=== PATIENT | male | born 1975 | race Caucasian/White ===

== ENCOUNTER 2016-04-29 17:57 | Emergency (ER) ==
[2016-04-29 18:37] LABS: MANUAL DIFF NEEDED? NO
[2016-04-29 18:56] LABS: BASO% 0.2 % (0.0-0.8); EOS# 0.52 X1000 (0.0-0.7); EOS% 3.8 % (0.0-10.0); HEMATOCRIT 42.6 % (42.0-52.0); HEMOGLOBIN 14.7 g/dL (14.0-18.0); IMM GRAN# 0.03 X1000 (0.0-0.04); IMM GRAN% 0.2 % (0.0-0.5); LYMPH# 1.95 X1000 (1.2-3.4); LYMPH% 14.2 % (20.5-51.1); MCH 29.6 PG (27-31); MCHC 34.5 g/dL (33-37); MCV 85.9 FL (81-99); MONO# 1.26 X1000 (0.11-0.59); MONO% 9.2 % (1.7-9.3); MPV 10.6 FL (7.4-10.4); NEUT% 72.4 % (42.2-75.2); PLT 286 X1000 (130-400); RBC 4.96 XMIL (4.7-6.1)
[2016-04-29 19:14] LABS: UR AMPHETAMINES QUAL NONE DETECTED (NONE DETECT); UR BARBITUATES QUAL NONE DETECTED (NONE DETECT); UR BENZODIAZEPIN QUAL PRESUMPTIVE POSITIVE (NONE DETECT); UR CANNABINOIDS QUAL NONE DETECTED (NONE DETECT); UR COCAINE QUAL NONE DETECTED (NONE DETECT); UR METHADONE QUAL NONE DETECTED (NONE DETECT); UR OPIATES QUAL NONE DETECTED (NONE DETECT); UR OXYCODONE QUAL PRESUMPTIVE POSITIVE (NONE DETECT); UR PCP QUAL NONE DETECTED (NONE DETECT)
[2016-04-29 19:24] LABS: AGAP 12; ALBUMIN 4.5 g/dL (3.5-5.0); ALKALINE PHOSPHATASE 87 U/L (32-122); BUN 9 mg/dL (8-22); CALCIUM 9.8 mg/dL (8.8-10.2); CHLORIDE 98 mmol/L (98-107); COSMO 280; GOT 26 U/L (10-34); GPT 24 U/L (10-44); SODIUM 141 mmol/L (136-145); TCO2 31 mmol/L (25-35); TOTAL BILIRUBIN 0.23 mg/dL (0.20-1.00); TOTAL PROTEIN 7.1 g/dL (6.3-8.3)
[2016-04-29] MEDS ORDERED: KEFLEX PO ONE (19:36)
--- NOTE | 2016-04-29 19:37 | PROVIDER DOCUMENTATION ---
HPI-General Adult - General Chief Complaint: General Adult Stated Complaint: FORREST,COUGHING,FALL,BACK PAIN Time Seen by Provider: 04/29/16 19:12 Source: patient Allergies/Adverse Reactions: Patient Allergies Allergy/AdvReac Type Severity Reaction Status Date / Time codeine [Codeine] Allergy Severe ANAPHYLAXIS Verified 04/29/16 19:31 Home Medications: Alprazolam [Xanax] 0.5 mg PO BID 10/10/15 Buprenorphine/Naloxone S.l. [Suboxone 8 mg/2 mg] 2.5 each SL QAM 10/10/15 Paroxetine [Paxil] 20 mg PO QPM 10/10/15 Dextroamphetamine/Amphetamine [Adderall 30 mg Tablet] 30 mg PO BID 04/29/16 - History of Present Illness -Gen Adult Nature of Presenting Problems: Pt is a 41 yom who presents to ER with CC of "feeling sick," "feels like I have a fever," sore throat, back pain. Pt reports that he ran out of his pain medicine and was given a percocet by a friend at home. Pt reports he lost his prescription for more pain medicine. Pt reports that he suffered a 13 foot fall x2 months ago and has since had short term memory loss. When asked if he smoked , due to wheezing, pt reported "I smoked a half cigarette 30 minutes before coming here." Location of Pain/Injury: reports: back Onset/Duration: reports: unsure Associated Symptoms: reports: back/neck pain, fever/chills, muscle aches Review of Systems - Adult - REVIEW OF SYSTEMS - ADULT Constitutional: reports: fever. denies: chills, fatique Eyes: reports: no symptoms reported Ears, Nose, Mouth & Throat: reports: no symptoms reported Cardiovascular: reports: no symptoms reported Respiratory: reports: no symptoms reported Gastrointestinal: reports: no symptoms reported Genitourinary: reports: no symptoms reported Musculoskeletal: reports: back pain. denies: bone pain, joint swelling, muscle aches Integumentary: reports: no symptoms reported Neurological: reports: no symptoms reported Psychiatric: reports: no symptoms reported Endocrine: reports: no symptoms reported Hematologic/Lymphatic: reports: no symptoms reported Allergic/Immunologic: reports: no symptoms reported All Other Systems: Reviewed and Negative Past History - Adult - PAST MEDICAL HISTORY-ADULT Review of Records: reports: Nursing Assessment Review, Medications Reviewed Respiratory: reports: bronchitis Gastrointestinal: reports: GERD Musculoskeletal: reports: arthritis, chronic pain Psychiatric: reports: anxiety - PRIOR SURGERIES/PROCEDURES Surgical/Procedure History: reports: orthopedic (extremity) - IMMUNIZATION STATUS Childhood Immunizations: See Nurse Assessment Flu Vaccine: See Nurse Assessment - SOCIAL HISTORY Smoking: cigarettes, less than 1 pack/day Provider spent 3-5 mins advising pt. on dangers of tobacco.: Discussed manners to quit use, and f/u contacts for add'l counseling. Substance Use: opiates Physical Exam-General - PHYSICAL EXAM-ADULT Initial Vital Signs Reviewed: Yes - CONSTITUTIONAL General Appearance: appears well, alert, no apparent distress - EYES Eyes: other (R pupil: 3mm; L pupil: 2mm) - NECK Neck: non-tender, full range of motion, supple - RESPIRATORY Respiratory: chest non-tender, lungs clear, wheezing (bilateral) - CARDIOVASCULAR Cardiovascular: normal peripheral pulses, regular rate, rhythm - LYMPHATIC Lymphatic: no adenopathy - MUSCULOSKELETAL Back Exam: no CVA tenderness, no vertebral tenderness Extremity: normal range of motion, non-tender, normal gait - SKIN Integumentary: normal color, normal turgor, warm/dry - NEUROLOGIC Neurologic: grossly normal, no motor/sensory deficits - PSYCHIATRIC Psych/Mental Status: normal mood/affect, normal thought content, normal thought process, oriented x 3 Progress - PLAN OF CARE/RESULTS Progress/Plan/Lab Results: Vital Signs - 24 hr 04/29/16 18:11 Temperature 98.3 F Pulse Rate 91 H Respiratory 18 Rate Blood Pressure 147/82 O2 Sat by Pulse 99 Oximetry Orders Category Date Time Status CHEST-2 VIEWS [RAD] Stat Exams 04/29/16 18:18 Taken LUMBAR SPINE [RAD] Stat Exams 04/29/16 18:32 Taken CBC WITH DIFF [HEME] Stat Lab 04/29/16 18:19 Completed COMPREHENSIVE METABOLIC PANEL [CHEM] Stat Lab 04/29/16 18:19 Completed URINE DRUG SCREEN Stat Lab 04/29/16 18:19 Completed CephALEXIN [Keflex] Med 04/29/16 19:36 Discontinued 500 mg PO NOW ONE Laboratory Tests 04/29/16 04/29/16 04/29/16 18:19 18:19 18:19 WBC 13.74 H RBC 4.96 Hgb 14.7 Hct 42.6 MCV 85.9 MCH 29.6 MCHC 34.5 RDW Std Deviation 13.2 Plt Count 286 MPV 10.6 H Immature Gran % (Auto) 0.2 Neut % (Auto) 72.4 Lymph % (Auto) 14.2 L Mcminn % (Auto) 9.2 Eos % (Auto) 3.8 Baso % (Auto) 0.2 Immature Gran # (Auto) 0.03 Neut # (Auto) 9.95 H Lymph # (Auto) 1.95 Mcminn # (Auto) 1.26 H Eos # (Auto) 0.52 Baso # (Auto) 0.03 Sodium 141 Potassium 4.0 Chloride 98 Carbon Dioxide 31 Anion Gap 12 BUN 9 Creatinine 0.8 Estimated GFR/1.73 m2 > 60 BUN/Creatinine Ratio 11 Glucose 93 Calculated Osmolality 280 Calcium 9.8 Total Bilirubin 0.23 AST 26 ALT 24 Alkaline Phosphatase 87 Total Protein 7.1 Albumin 4.5 Globulin 2.6 Albumin/Globulin Ratio 1.7 Urine Opiates Screen NONE DETECTED Ur Oxycodone Screen PRESUMPTIVE POSITIVE A Ur Methadone, Qual NONE DETECTED Ur Barbiturates Screen NONE DETECTED Ur Phencyclidine Scrn NONE DETECTED Ur Amphetamines Screen NONE DETECTED U Benzodiazepines Scrn PRESUMPTIVE POSITIVE A Urine Cocaine Screen NONE DETECTED U Cannabinoids Screen NONE DETECTED Departure - Departure Time of Disposition Order: 19:38 DIAGNOSIS: Chronic back pain Qualifiers: Back pain location: back pain in unspecified location Back pain laterality: unspecified Qualified Code(s): M54.9 - Dorsalgia, unspecified; G89.29 - Other chronic pain Asthmatic bronchitis Qualifiers: Asthma severity: unspecified severity Asthma complication type: uncomplicated Qualified Code(s): J45.909 - Unspecified asthma, uncomplicated Disposition: HOME 01 Certified Medical Emergency: Emergent Condition: Stable Additional Instructions: ED Follow Up Instructions: You have been treated by a care provider in the Emergency Department. These instructions are being provided to you so you can have an understanding of how to care for yourself upon discharge. Upon discharge from the Emergency Department, you are responsible for making arrangements for follow-up care by a physician of your choice. Take all prescribed medications as directed. Return to the Emergency Department immediately for any new or worsening symptoms. You may call the Physician Referral phone number at [phone] to obtain a list of Physicians who are taking new patients. Attestation - Scribe Verification/Attestation Scribe:: Blue Paulson Acting as Scribe for:: Genaro Herrera Scribe documention review:: This chart was documented by a scribe and accurately reflects the service the provider performed and the decisions made by the provider.
[2016-04-29] MEDS ORDERED: NAPROSYN PO ONE (19:39)
[2016-04-29 19:55] VITALS: BP 132/74
--- NOTE | 2016-04-29 21:49 | Diag Imaging Result Document ---
PROCEDURE NAME: CHEST-2 VIEWS - 04/29/2016 PA AND LATERAL RADIOGRAPH OF THE CHEST: COMPARISON: 09/04/2015. FINDINGS: The lungs are grossly clear. There is no discrete pleural fluid collection or evidence of pneumothorax. The cardiomediastinal silhouette and upper airway are grossly unremarkable. IMPRESSION: No evidence of acute chest pathology.
--- NOTE | 2016-04-29 21:58 | Diag Imaging Result Document ---
PROCEDURE NAME: LUMBAR SPINE - 04/29/2016 PLAIN RADIOGRAPH THE LUMBAR SPINE 6 VIEWS: COMPARISON: 07/25/2012. FINDINGS: There are tiny ventral marginal osteophytes at multiple levels that are very similar to the previous study. There has been interval. Mild height loss at L5-S1 and there may be mild vacuum disk phenomenon at this level as well. There is no evidence of fracture, subluxation, or intrinsic osseous lesion, otherwise. Surrounding soft tissues are grossly unremarkable. IMPRESSION: Mild endplate degenerative changes at multiple levels, most of which are stable. However, there is slightly more height loss at the intervertebral disk space at L5-S1.
== END 2016-04-29 20:20 | disposition home or self-care (01) ==
LOC: ED 17:57
DX: J45.909 Unspecified asthma, uncomplicated (principal); M54.9 Dorsalgia, unspecified; G89.29 Other chronic pain; R50.9 Fever, unspecified; M79.1 Myalgia; R06.2 Wheezing; M19.90 Unspecified osteoarthritis, unspecified site; F41.9 Anxiety disorder, unspecified; F17.210 Nicotine dependence, cigarettes, uncomplicated; Z71.6 Tobacco abuse counseling; Z79.899 Other long term (current) drug therapy
CPT/HCPCS: 36415; 71020; 72110; 80053; 85025; 99284; G0480